=== PATIENT | female | born 1955 | race Caucasian/White ===

== ENCOUNTER 2017-04-05 09:54 | Outpatient (CLI) | payer OTHER ==
--- NOTE | 2017-04-05 10:42 | DIAGNOSTIC IMAGING REPORT ---
PROCEDURE: XR HIP BILATERAL INDICATION: BACK PX,LUMBAR/HIP PX BILATERAL TECHNIQUE: AP view of the pelvis and hips with lateral views of the bilateral hips. COMPARISON: Bilateral hip x-rays 06/06/2016. FINDINGS: RIGHT HIP: Mild degenerative changes with acetabular marginal spurring and subchondral cystic changes. LEFT HIP: Mild degenerative changes with acetabular marginal spurring and subchondral cystic changes. AP PELVIS: Osteopenia. No fracture or suspicious osseous lesion. Degenerative changes of the lumbar spine. Soft tissues are unremarkable. IMPRESSION: 1. Mild bilateral hip degenerative changes
--- NOTE | 2017-04-05 10:50 | DIAGNOSTIC IMAGING REPORT ---
PROCEDURE: XR LUMBAR SPINE 2 OR 3 VIEWS INDICATION: BACK PX,LUMBAR/HIP PX BILATERAL TECHNIQUE: Three views. COMPARISON: None. FINDINGS: Severe spondylosis L4-5 and L3-4. There is retrolisthesis at L3-4. There is a large of posterior osteophytic ridge at L4-5 resulting in spinal stenosis. IMPRESSION: 1. Severe spondylosis with probable spinal stenosis at L4-5. CT scan or MRI would be useful for confirmation.
== END 2017-04-05 23:00 | disposition home or self-care (01) ==
LOC: XR SRH 09:54
DX: M16.0 Bilateral primary osteoarthritis of hip (principal); M47.816 Spondylosis without myelopathy or radiculopathy, lumbar region